=== PATIENT | female | born 1995 | race Caucasian/White ===

== ENCOUNTER 2017-06-04 16:41 | Inpatient (IN) | payer OTHER ==
--- NOTE | 2017-06-04 17:19 | EDPHY ---
H & P Smoking Status: Former smoker Time Seen by Provider: 06/04/17 16:50 HPI/ROS: CHIEF COMPLAINT: Depression, altered mental status HISTORY OF PRESENT ILLNESS: 21-year-old female presents to the emergency department voluntarily with her mother. She has a history of depression. She has been taking Wellbutrin although she has not been compliant with this medication. She stopped abruptly a few days ago and then restarted and started taking 300 mg of Wellbutrin. The patient has not been sleeping well. Her mother and her roommates report that she has been responding with bizarre comments. She had times will not make sense. She denies any URI symptoms. No chest pain or difficulty breathing. No cough. No fevers or chills. She denies suicidal homicidal ideation. Denies auditory visual hallucinations. She does smoke marijuana, last use was over 1 week ago. The mother and roommates reports that her altered mental status has been present for the last 2 weeks. She currently denies any physical complaints. Unknown last menstrual period. She has a Mirena IUD. She does report stress with upcoming finals and recent break-up with her boyfriend. REVIEW OF SYSTEMS: Constitutional: No fever, no chills. Eyes: No double or blurry vision. ENT: No sore throat. Respiratory: No cough, no shortness of breath. Cardiac: No chest pain. Gastrointestinal: No abdominal pain, vomiting or diarrhea. Genitourinary: No dysuria. Musculoskeletal: No neck or back pain. Skin: No rashes. Neurological: No headache. (JosieLeela Becky) Past Medical/Surgical History: Depression (AlyssaLeela kenney) Social History: [employer] student studying chemistry (Elza Galindorina Becky) Physical Exam: General Appearance: Alert, no distress. Mother at bedside. Afebrile. Normal vital signs. Eyes: Pupils equal and round. Extraocular motions are all intact. ENT: Mouth: Mucous membranes moist. Respiratory: No wheezing, rhonchi, or rales, lungs are clear to auscultation. Cardiovascular: Regular rate and rhythm. Gastrointestinal: Abdomen is soft and nontender, no masses, no rebound or guarding, bowel sounds normal. Neurological: Alert and oriented x 3, cranial nerves II through XII grossly intact Skin: Warm and dry, no rashes. Musculoskeletal: Nontender to palpate along the cervical, thoracic or lumbar spine. Neck is supple. Extremities: Full range of motion and no peripheral edema. Psychiatric: Patient is oriented X 3, there is no agitation. (Leela Galindo) Constitutional: Initial Vital Signs Temperature (C) 37.3 C 06/04/17 16:48 Heart Rate 87 06/04/17 16:48 Respiratory Rate 18 06/04/17 16:48 Blood Pressure 109/77 06/04/17 16:48 O2 Sat (%) 97 06/04/17 16:48 O2 Delivery Mode Room Air Allergies/Adverse Reactions: No Known Allergies Allergy (Unverified 06/04/17 16:48) Home Medications: Medication Instructions Recorded NK [No Known Home Meds] 06/04/17 Medical Decision Making ED Course/Re-evaluation: 12:30 a.m.- The patient has been accepted at [address] [place] [address] Freire. I have completed the EMTALA transfer form. (Carlene Trevino) The patient presents voluntarily with her mother with altered mental status and depression. Her current psychiatrist and therapist encouraged them to come to the emergency department for evaluation. The patient has been medically cleared. She was evaluated by mental health and placed on M1 hold. She is admitted to [address] [place] [address] for inpatient Behavioral Health. (Leela Galindo) Differential Diagnosis: Depression including functional and major depression, situational depression, medication side effect, drugs and alcohol abuse. (Leela Galindo) - Data Points Laboratory Results: Laboratory Results 06/04/17 17:20 06/04/17 17:20 Medications Given: Hunt Carbonate (Eskalith Cr) 450 mg PO BID MALINDA Stop: 12/02/17 10:59 Last Admin: 06/05/17 11:23 Dose: Not Given Lorazepam (Ativan) 1 mg PO Q4HRS PRN PRN Reason: Anxiety, Able to Take PO Stop: 12/02/17 00:09 Last Admin: 06/05/17 13:21 Dose: 1 mg Lorazepam (Ativan) 0.5 mg PO BID MALINDA Stop: 12/02/17 11:14 Last Admin: 06/05/17 11:23 Dose: Not Given Olanzapine (Zyprexa Zydis) 5 mg PO Q4 PRN PRN Reason: AGITATION Stop: 12/02/17 00:09 Last Admin: 06/05/17 13:20 Dose: 5 mg Discontinued Medications Diphenhydramine HCl (Benadryl) 25 mg PO EDNOW ONE Stop: 06/04/17 23:52 Last Admin: 06/04/17 23:53 Dose: 25 mg Departure - Departure Disposition: [facility] IP Clinical Impression: Psychosis Qualifiers: Psychosis type: unspecified psychosis type Qualified Code(s): F29 - Unspecified psychosis not due to a substance or known physiological condition Condition: Fair
[2017-06-04 17:33] LABS: PLATELET COUNT 307 10^3/uL (150-400)
[2017-06-04] MEDS ORDERED: diphenhydrAMINE 25 MG CAP PO ONE ×2 (23:48→23:51)
[2017-06-05] MEDS ORDERED: ACETAMINOPHEN 325 MG TAB PO PRN (00:10)
[2017-06-05] MEDS ORDERED: LORazepam 0.5 MG TAB PO PRN (00:10)
[2017-06-05] MEDS ORDERED: OLANZapine DISINTEGR 5 MG TAB PO PRN (00:10)
[2017-06-05] MEDS ORDERED: MAGNESIUM HYDROXIDE 30 ML UDCUP PO PRN (00:10)
[2017-06-05] MEDS ORDERED: MAG HYDROX/AL HYDROX/SIMETH 30 ML UDCUP PO PRN (00:10)
[2017-06-05] MEDS: LORazepam 0.5 MG TAB PO SCH ×3 (11:10→19:05)
[2017-06-05] MEDS: LITHIUM CARBONATE ER 450 MG TAB PO SCH ×3 (11:11→18:59)
[2017-06-05] MEDS ORDERED: LORazepam 2 MG/ML INJ IM PRN (11:23)
[2017-06-05] MEDS ORDERED: OLANZapine 10 MG/2 ML VIAL IM PRN (11:23)
--- NOTE | 2017-06-05 12:10 | BAPA ---
[f rep st] ADMISSION PSYCHIATRIC ASSESSMENT IDENTIFICATION: This is a 21-year-old single white female who lives with 2 roommates. 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 Her parents live in [place], [place]. CHIEF COMPLAINT: "Why is there no music in here, what school did you go to? It is a struggle. I was in the ambulance, there were red lights, everyone was asking me questions, my Mom was scared, my dog ." HISTORY OF PRESENT ILLNESS: The patient is a poor historian with disorganized and tangential thoughts, and refusal to answer most questions. She abruptly yells at this physician and demands to know what school I went to. She is demanding that music be played for her so that she can sing. When approached with medications to take, she throws the tablets in the air, throws the pill cup at the nurse, screams and walks away. She is unwilling to discuss diagnosis and treatment options. She does report prior to admission that she was calling multiple family members and friends, but she is unable to explain why. She does report that she has been doing well in school up until the past week, that she has been missing classes. She does currently deny thoughts to hurt herself or others, or any hallucinations. The report from the emergency room is that the patient was taken to the ER after the patient was making bizarre statements to her roommates, who called her parents. Her mother took her to the emergency department. The patient's mother reports over the phone and in the ER that the patient has been acting erratically, has had reduced sleep, lost weight, about 16 pounds, at times has been expansive, talking about singing rap songs. She also reported to her mother that she is getting and wants a white dress, but is unable to explain to whom she is getting to. According to her mother, she has also been hysterical, crying, screaming, irritable, agitated and more emotional. She has also been speaking fast and having bizarre behaviors. The patient's mother took her to [facility], who apparently referred her to the emergency department. The patient's mother reports the patient took Wellbutrin for several months for depression, but had not been taking Wellbutrin in the past month, has been missing classes in the past week, not eating well, losing weight and acting bizarre. In the emergency department, the patient made statements about wanting to be euthanized and wanting to commit suicide, but denied intent to do this. She denied violent thoughts or hallucinations in the emergency department. She denied recent drug or alcohol abuse in the emergency department , other than using cannabis and alcohol once or twice a month with friends. The patient currently denies any physical health problems or any weakness in her arms or legs. She denies nausea, diarrhea, headaches, or visual changes. PAST PSYCHIATRIC HISTORY: The patient denies past psychiatric hospitalizations and denies any past suicide attempts or violence toward others. This history is supported by her mother. The patient has been in outpatient treatment at [facility] with Maida Gomez, a nurse practitioner, and taking Wellbutrin for about 6 months, but has recently been noncompliant. The patient has no history of arrests or other psychiatric medication trials. PAST MEDICAL HISTORY: She has an IUD for control. She denies traumatic brain injuries, seizures, concussions, or any chronic medical problems. ALLERGIES: She has no known drug allergies. CURRENT MEDICATIONS: Wellbutrin 300 mg daily, but has been noncompliant for the past month. SOCIAL HISTORY: She grew up in [place], [place], graduated from high school, and then went to the [employer] for college. Her parents relocated to [place], [place]. She has a younger brother who is in high school. She has never been , has no children. 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 She lives with 2 roommates. The patient reports her family dog a week ago. FAMILY HISTORY: The patient's mother reports the patient's maternal uncle has depression and paternal aunt has depression. No family history of suicide, schizophrenia, bipolar disorder or substance abuse. LABS: In the emergency department, her urine tox screen was negative, alcohol level negative. Serum beta HCG was negative. She had a white blood cell count 9.9, hemoglobin 15.9, platelet count 307. Sodium 142, potassium 3.8, creatinine 0.8, glucose 92, calcium 10.2. The staff report on the unit the patient only slept 4 hours after arriving on the unit at 1:00 a.m. She has been loud, disruptive, screaming, crying, throwing things, but she has also been acting very disorganized, labile, laughing at nothing and crying at times. MENTAL STATUS EXAM: She is a thin white female who is ambulatory without weakness or tremors. She has good eye contact. She has disorganized behavior and is intrusive and inappropriate with staff and other patients. She is impulsively walking away and throwing things. Her speech is briefly loud, with brief yelling. Her thoughts are disorganized with loose associations and tangential thinking. Her mood is "Why is there no music for me to sing to." Her affect is irritable and labile. She denies current thoughts to hurt herself or others. She denies auditory hallucinations or paranoia. Her insight is very poor. Her judgment is impaired. ASSESSMENT: Bipolar disorder type 1, most recent episode manic, severe. The overall assessment is the patient appears gravely disabled. She is very disorganized with tangential thinking, mood lability, has been not eating well and lost 16 pounds, has been missing school. She was taken to the emergency department for erratic and bizarre behaviors. There, she did make statements about suicide, but denies current suicidal ideation on the unit. The patient is agitated and throwing her pills in the air, and throwing a cup at the nursing staff, and is unable to follow simple directions at times. She is intrusive and disruptive on the unit. The patient has no prior history of psychiatric hospitalizations or carlos, but may have been taking Wellbutrin intermittently in the past month. PLAN: 1. The patient is on M1 hold due to concern that she is gravely disabled by disorganized thinking and bizarre behavior. The M1 hold indicates the patient has been nonsensical in her speech and delusional that she is getting . 2. The patient is on safety and SP1 suicide precautions on the unit to monitor her safety. 3. The patient is unable to have a back and forth discussion about the risks and benefits of different mood stabilizer medications. We will offer lithium 600 mg p.o. twice daily, along with Ativan 0.5 mg twice daily for bipolar disorder with agitation. 4. Provided the patient a handout on bipolar disorder to read, as well as a handout from the [facility] on the risks and side effects of lithium. 5. Ordered emergency medication backup for the next 24 hours, as the patient has been very disruptive and verbally abusive to the people on the unit, and she has been throwing things, which is a physical and emotional danger to the other patients and staff. Ordered lorazepam 1 mg IM if patient refused scheduled or p.r.n. Ativan dosing. I also ordered olanzapine 5 mg IM if refusing p.r.n. Zydis 5 mg or the scheduled lithium 600 mg twice daily. 6. Added on a TSH, lipid panel, liver function tests to the emergency room blood work. A hospitalist evaluation and physical exam is pending. 7. We will file a short-term certification for the patient to remain in the hospital, as she is not accepting voluntary treatment and needs emergency medications. 8. Requested records from [facility] 9. Reviewed assessment and plan with patients mother, who was visiting patient on the unit. Patient gave verbal consent to have her care coordinated with her parents. Addendum: In the afternoon patient was screaming and throwing mouth wash and shampoo bottles in the hallway. She took PRN Ativan 1mg and PRN Zydis 5mg by mouth and was more calm and rested. /[id number]/MODL MTDD
[2017-06-05] MEDS: LORazepam 0.5 MG TAB PO PRN ×2 (13:21→19:04)
--- NOTE | 2017-06-05 17:28 | BCON ---
[f rep st] BEHAVIORAL HEALTH CONSULTATION INPATIENT INTERNAL MEDICINE CONSULTATION DATE OF CONSULTATION: 06/05/2017 REFERRING PHYSICIAN: Alexy Oseguera MD REASON FOR REFERRAL: Medical clearance for inpatient behavioral health stay. HISTORY OF PRESENT ILLNESS: This patient was brought to the emergency room yesterday with her mother. She had been referred there by the [facility]. She had been having erratic behavior, making bizarre statements. Further history per chart reveals that she has had reduced sleep, many manic symptoms and a 16- pound weight loss. She was evaluated by the mental health team and admitted for further psychiatric care. Since being on the unit, she was disruptive and labile, and has received emergency medications with lorazepam and olanzapine. She currently is without any acute complaints. PAST MEDICAL HISTORY: Depression. MEDICATIONS: She had intermittent use of bupropion. 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 She lives with roommates. She is a nonsmoker. She uses occasional marijuana. FAMILY HISTORY: Noncontributory. REVIEW OF SYSTEMS: She feels sleepy. She is aware of weight loss. She says she is not sure if she feels dizzy or not when she stands up. She denies pain, cough, dyspnea, nausea, vomiting, constipation, or diarrhea. She says her appetite is improved. Otherwise, a 10-point review of systems is negative. PHYSICAL EXAM: VITAL SIGNS: Taken at 1:50 this morning, blood pressure was 126 /88, heart rate was 69, respiratory rate was 16, oxygen saturation was 95% on room air. Temperature was 36.3 degrees centigrade. Her weight is 61.8 kg for a body mass index of 22. GENERAL: This is a thin woman, appears her chronologic age, sleeping, awakes to verbal stimulation. Overall cooperative, and in no acute distress HEENT: Extraocular movements are intact. Dentition is good condition. Mucous membranes are moist. Further exam was limited due to patient's behavior. LUNGS: She had no retractions and no tachypnea. ABDOMEN: Overall, was benign. EXTREMITIES: There is no cyanosis, clubbing, or edema. NEUROLOGIC: She was alert. She was oriented to self and date. She was not oriented to location. She had no focal weakness. She stood up from the bed and fell to the floor, initially collapsing to hands and knees and then prone with no head trauma. She was able to stand up again without assistance, but had minor loss of balance with spontaneous correction, and then reported that she needed to urinate and went to the bathroom. I returned to the room with a nurse. She was able to ambulate with minimal ataxia and minor loss of balance with spontaneous correction, back to her bed. LABORATORY STUDIES: Drawn in the emergency department, CBC revealed a mildly elevated white blood cell count at 9.97 with no left shift, red blood cell count was high at 5.58 and hematocrit was high at 47.3; otherwise, CBC was within normal limits. Serum chemistry revealed an anion gap of 17, but otherwise renal function and electrolytes were within normal limits. TSH was normal at 2.02. Beta hCG was negative for . Toxicology screen in the serum was negative for ethyl alcohol and the urine was negative for any substances of abuse. ASSESSMENT AND RECOMMENDATIONS: 1. Mental health issues, pending further evaluation per Psychiatry and the Mental Health team. 2. Ataxia and a fall, likely due to emergency medication with olanzapine and lorazepam, medications which she has not taken before. I have ordered orthostatic blood pressure and pulse, supine and standing. She may benefit from increased fluid intake. Consider adjustment of the lorazepam dose to reduce risk of falling, assuming that her behavior is otherwise adequately controlled. 3. Weight loss is likely due to her mental health condition. Observe for normal p.o. intake once she is psychiatrically stabilized. I see no medical contraindications to this patient's continued stay on the inpatient behavioral health unit or to any psychiatric medications or procedures. Thank you very much for including me in the care of this patient and please do not hesitate to contact me or the hospitalist service should there be need for further medical evaluation. /[id number]/MODL MTDD
[2017-06-06] MEDS: LORazepam 0.5 MG TAB PO SCH (08:23)
[2017-06-06] MEDS: LITHIUM CARBONATE ER 450 MG TAB PO SCH ×2 (08:23→20:43)
[2017-06-06] MEDS ORDERED: LORazepam 2 MG/ML INJ IM PRN (10:55)
[2017-06-06] MEDS ORDERED: OLANZapine 10 MG/2 ML VIAL IM PRN (10:55)
[2017-06-06] MEDS ORDERED: OLANZapine 2.5 MG TAB PO PRN (10:56)
--- NOTE | 2017-06-06 11:02 | SOAPPROG ---
SOAP Progress Note Assessment/Plan: Assessment: Bipolar Disorder, I, Manic severe with mixed features Hypotension, recent weight loss Patient was manic and disruptive on unit and throwing objections with severe verbal abuse of staff and severe mood lability. Patient had hypotension and near syncope after Ativan 1mg and Olanzapine 5mg. Patient appears much improved and more calm but has mood lability and appears distracted and tangential. Plan: Short Term Certification 06/05/17 EMED DAY TWO Reduce Ativan 0.5mg QHS and PRN, if refused Ativan 0.5mg IM Continue [place] 450mg BID, started 06/05/17 Reduce Olanzapine 2.5mg [id number] PRN agitation, if refused Olanzapine 2.5mg IM Monitor PO intake; Vitals BID Education about Bipolar Disorder Reviewed risks of [place], including hypothyroidism, renal dysfunction, defects, delirium, GI symptoms Left voicemail at [facility] for [employer] Maida Gomez requesting call back to coordinate care Wrote letter for patient to give to parents for school excuse 06/06/17 11:09 Subjective: CC: 'better, i apologize for the fit that I threw.' Patient reports that she slept well. Denies feeling dizzy or unsteady this AM and reports eating breakfast. Reports reading handout on Bipolar Disorder and agrees with diagnosis. Reports yesterday feeling agitated, emotional, impulsive. Reports not wanting to meet with mother on unit at this time 'she triggers me and I get really upset with her.' Reports she is unsure how long she has had mood swings. Denies feeling hopeless or suicidal. Admits to feeling violent yesterday but denies feeling violent this AM. Objective: Vital Signs Temp Pulse Resp BP Pulse Ox 36.5 C 69 14 87/53 L 95 06/06/17 06:44 06/06/17 06:44 06/06/17 06:44 06/06/17 06:44 06/06/17 06:44 Alert thin WF, ambulatory. Very distracted. Speech RRR, loud at times. No tremors or weakness. Mood 'better, i apologize for the fit that I threw.' Affect labile: smiling and laughing, later tearful. Thoughts briefly organized but tangential with occasional loose association. Denies SI or HI or AH. Insight improved. Judgment questionable. Staff report yesterday patient extremely agitated, crying, screaming, throwing objects, disrupting unit, illogical. Got EMED/PRN Zydis 5mg and Ativan 1mg PO at 13:00, slept a few hours. Was mildly ataxic getting out of bed for hospitalist, fell to ground on hands and knees with low BP, later able to walk and use bathroom. Minimal PO intake in AM yesterday. Able to drink large amount of Gatorade in evening and cooperated with PO [place] and Ativan last night. Staff report patient slept 8 hours overnight and ate full breakfast this AM TSH 2.0; Lipids, HgbA1c, LFTs WNL . - Time Spent With Patient Time Spent With Patient: 30 minutes - Pending Discharge Pending Discharge Within 24 Hours: No Pending Discharge Within 48 Hours: No ICD10 Worksheet Patient Problems: Problems Problem Status Onset Bipolar disorder Acute Intrauterine device Acute Psychosis Acute
--- NOTE | 2017-06-06 14:15 | CPEKG ---
Heart Rate: 107 RR Interval: 561 P-R Interval: 176 QRSD Interval: 82 QT Interval: 320 QTC Interval: 427 P Berry: 59 QRS Berry: 75 T Wave Berry: 22 EKG Severity - OTHERWISE NORMAL ECG - EKG Impression: SINUS TACHYCARDIA Electronically Signed By: Bradley Cottrell 07-Jun-2017 15:46:32
[2017-06-06] MEDS: LORazepam 0.5 MG TAB PO PRN (14:38)
[2017-06-06] MEDS ORDERED: LORazepam 0.5 MG TAB PO SCH (21:00)
[2017-06-07] MEDS: LITHIUM CARBONATE ER 450 MG TAB PO SCH ×2 (08:46→17:56)
[2017-06-07] MEDS ORDERED: OLANZapine 2.5 MG TAB PO PRN (14:05)
--- NOTE | 2017-06-07 14:12 | SOAPPROG ---
SOAP Progress Note Assessment/Plan: Assessment: Bipolar Disorder, I, Manic severe with mixed and psychotic features Recent hypotension, near syncope, weight loss Patient is much more calm and appropriate but is tangential, grandiose, and illogical at times with labile affect. Plan: Short Term Certification 06/05/17 Continue [place] 450mg BID Check AM [place] level and BMP Start Olanzapine 2.5mg QHS. SHREYA handout on olanzapine provided to patient, discussed risk of sedation, metabolic syndrome, tardive dyskinesia. Change Olanzapine 2.5mg PRN agitation Change Ativan 0.5mg PRN Monitor mood lability and thought process Reviewed plan with mother who is on the unit visiting Supportive therapy regarding school stressors 06/07/17 14:18 Subjective: CC: "Alright Mr. Lyon" Patient is a poor historian. Endorses mood swings and irritability, reports briefly crying 'on and off' and briefly yelling at mother. Reports not wanting to live with parents after discharge due to wanting to complete school. Denies side effects from medications. Reports her plans to get were not based in reality but later reports she is in love with a boy in her physics class and then starts crying. Reports her thoughts of being a rap star involves singing songs with her friends, when asked if that was an odd plan patient starts crying. Later smiling and laughing about her behavior on 06/05. Reports her current goal is to return home with roommates and take her finals. Reports she is willing to take [place] and Zyprexa 'as long as I get to see a picture of the chemical structure.' Denies ever having AH or VH or paranoia. Objective: Vital Signs Temp Pulse Resp BP Pulse Ox 36.5 C 78 16 119/65 91 L 06/06/17 06:44 06/07/17 07:04 06/07/17 07:04 06/07/17 07:04 06/07/17 07:04 Staff report patient eating meals and drinking fluids with prompts. Attending most groups. Patient has been labile on unit, crying alone in room, other times in milieu socializing laughing with patients, briefly yelling at mother during visits. Only slept 6 hours overnight. Alert WF. ambulatory without tremors or weakness. Speech RRR. Mood 'alright' Affect labile: smiling with humor, later crying. Thoughts mostly organized but illogical and grandiose when talking about wanting to sing rap songs with friends and get to a boy in her physics class. Illogical/odd statements. Denies AH. No evident paranoia. Limited insight. EKG WNL except sinus tachycardia HR 107. Ate 100% of meals. - Time Spent With Patient Time Spent With Patient: 30 minutes - Pending Discharge Pending Discharge Within 24 Hours: No Pending Discharge Within 48 Hours: No ICD10 Worksheet Patient Problems: Problems Problem Status Onset Bipolar disorder Acute Intrauterine device Acute Psychosis Acute
[2017-06-07] MEDS ORDERED: OLANZapine 2.5 MG TAB PO SCH (21:00)
[2017-06-07] MEDS: LORazepam 0.5 MG TAB PO PRN (22:27)
[2017-06-08] MEDS: LITHIUM CARBONATE ER 450 MG TAB PO SCH (08:23)
[2017-06-08] MEDS: LORazepam 0.5 MG TAB PO PRN (12:06)
[2017-06-08] MEDS ORDERED: OLANZapine 2.5 MG TAB PO PRN (13:24)
[2017-06-08] MEDS ORDERED: LORazepam 0.5 MG TAB PO PRN (13:24)
--- NOTE | 2017-06-08 13:30 | SOAPPROG ---
SOAP Progress Note Assessment/Plan: Assessment: Bipolar Disorder, I, Manic severe with mixed and psychotic features Recent hypotension, recent weight loss Patient has been calm mostly today, but is labile (tearful, anxious, irritable, briefly euphoric) and appears impulsive with poor insight. Plan: Short Term Certification 06/05/17 Increase [place] 600mg QAM and 900mg QHS Check [place] level Sunday06/11/17 Schedule Ativan 0.5mg QHS, discontinue daytime PRN Continue Olanzapine 2.5mg PO QHS Start Olanzapine 2.5mg [id number] PRN agitation during the day Monitor mood lability and thought process and impulse control 06/08/17 13:37 Subjective: CC: "I'm OK, I was anxious and upset and took an Ativan, I thought a patient was leaving, not sure what was going on, I want to go hiking.' Patient reports needing PRN Lorazepam last night to sleep. Reports continued mood instability, reports some moments wanting discharge to go hiking, later feeling anxious worried about the emotional well-being of the other patients, and at other times realizing that she has bipolar disorder and needs medication. Reports wanting to go home with parents after discharge, then later reports wanting to on a hiking trip with friends. Later reports feeling more calm, then later impulsively walks away from interview report that she doesn't feel that she is understood. Objective: Vital Signs Temp Pulse Resp BP Pulse Ox 36.7 C 72 16 100/60 98 06/08/17 06:41 06/08/17 06:41 06/08/17 06:41 06/08/17 06:41 06/08/17 06:41 Laboratory Results 06/08/17 06:00 Staff report patient took HS Olanzapine/[place], then took PRN Ativan 0.5mg, then slept 8 hours. Calm during groups, but outside of groups pacing the hallways, making odd statements, briefly crying in room, later smiling and laughing. Alert WF. Initially cooperative then impulsively walks away from interview. Affect labile - smiling with humor, later crying, later anxious and irritable. Thoughts briefly organized. Denies SI, violent thoughts or AH. Poor insight - reports wanting immediate discharge to go on a hiking trip. - Time Spent With Patient Time Spent With Patient: 20 minutes - Pending Discharge Pending Discharge Within 24 Hours: No Pending Discharge Within 48 Hours: No ICD10 Worksheet Patient Problems: Problems Problem Status Onset Bipolar disorder Acute Intrauterine device Acute Psychosis Acute
[2017-06-08] MEDS ORDERED: OLANZapine 2.5 MG TAB PO SCH (21:00)
[2017-06-08] MEDS: LITHIUM CARBONATE 300 MG CAP PO SCH (21:01)
[2017-06-08] MEDS: LORazepam 0.5 MG TAB PO SCH (21:02)
[2017-06-09] MEDS: LITHIUM CARBONATE 300 MG CAP PO SCH ×2 (08:07→20:27)
--- NOTE | 2017-06-09 14:31 | SOAPPROG ---
SOAP Progress Note Assessment/Plan: Assessment: Per Dr. Lyon's note: Assessment/Plan: Assessment: Bipolar Disorder, I, Manic severe with mixed and psychotic features Recent hypotension, recent weight loss Patient has been calm mostly today, but is labile (tearful, anxious, irritable, briefly euphoric) and appears impulsive with poor insight. Plan: Short Term Certification 06/05/17 Increase [place] 600mg QAM and 900mg QHS Check [place] level Sunday06/11/17 Schedule Ativan 0.5mg QHS, discontinue daytime PRN Continue Olanzapine 2.5mg PO QHS Start Olanzapine 2.5mg [id number] PRN agitation during the day Monitor mood lability and thought process and impulse control Plan: 06/09/17 14:28 1. No evidence of carlos: no increased goal-directed activity, no decreased need for sleep, no elated or elevated mood, no grandiose delusions, no reckless or impulsive behavior, no pressured speech or racing thoughts. 2. Patient has been eating 100% of meals, going to groups and participating in milieu activities. 3. [place] level on 06/[address] Lyon increased dose and ordered repeat level on 06/11/17. Subjective: Met with patient, reviewed chart and d/w staff. Patient has been calm and appropriate on unit. She was playing chess with staff this AM. She has been going to groups and participating in milieu activities. She denies any SI/HI, and denies AH/VH. Objective: Vital Signs Temp Pulse Resp BP Pulse Ox 36.6 C 76 14 109/67 98 06/09/17 06:35 06/09/17 06:35 06/09/17 06:35 06/09/17 06:35 06/09/17 06:35 Laboratory Results 06/08/17 06:00 MSE: Affect: Euthymic Mood: "OK" TP: Linear TC: Denies any SI/HI, no AH/VH, no paranoia Insight/Judgment: Improving - Time Spent With Patient Time Spent With Patient: 15" - Pending Discharge Pending Discharge Within 24 Hours: No Pending Discharge Within 48 Hours: No ICD10 Worksheet Patient Problems: Problems Problem Status Onset Bipolar disorder Acute Intrauterine device Acute Psychosis Acute
[2017-06-09] MEDS: LORazepam 0.5 MG TAB PO SCH (20:27)
[2017-06-10] MEDS: LITHIUM CARBONATE 300 MG CAP PO SCH ×2 (08:47→18:15)
--- NOTE | 2017-06-10 13:03 | SOAPPROG ---
SOAP Progress Note Assessment/Plan: Assessment: Per Dr. Lyon's note: Assessment/Plan: Assessment: Bipolar Disorder, I, Manic severe with mixed and psychotic features Recent hypotension, recent weight loss Patient has been calm mostly today, but is labile (tearful, anxious, irritable, briefly euphoric) and appears impulsive with poor insight. Plan: Short Term Certification 06/05/17 Increase [place] 600mg QAM and 900mg QHS Check [place] level Sunday06/11/17 Schedule Ativan 0.5mg QHS, discontinue daytime PRN Continue Olanzapine 2.5mg PO QHS Start Olanzapine 2.5mg [id number] PRN agitation during the day Monitor mood lability and thought process and impulse control Plan: 06/09/17 14:28 1. No evidence of carlos: no increased goal-directed activity, no decreased need for sleep, no elated or elevated mood, no grandiose delusions, no reckless or impulsive behavior, no pressured speech or racing thoughts. 2. Patient has been eating 100% of meals, going to groups and participating in milieu activities. 3. [place] level on 06/[address] Lyon increased dose and ordered repeat level on 06/11/17. 06/10/17 12:57 1. Labile, tearful at times. Some response latency. 2. Complained of nausea, but ate 100% of breakfast and lunch. Admitted upset stomach could be b/c she wasn't looking forward to visit with MOC. 3. No complaints of SE's from lithium. 4. [place] level on Sunday. Subjective: Met with patient, reviewed chart and d/w staff. Patient has odd affect, stares at MD intently while smiling, followed by long delay before responding. Her MOC told CC yesterday that she did not think her daughter was acting normally. She told CC "this is not" her daughter's baseline. She said usually daughter is very talkative and her speech is much more spontaneous and fluent. While MD was talking to patient she broke down crying, staying she doesn't want to talk to her MOC b/c her MOC wants her to return to live with her, and patient wants to "go to [facility]" for "opportunities" though she couldn't specify what opportunities. Objective: Vital Signs Temp Pulse Resp BP Pulse Ox 36.7 C 75 16 121/58 H 99 06/10/17 06:45 06/10/17 06:45 06/10/17 06:45 06/10/17 06:45 06/10/17 06:45 Laboratory Results 06/08/17 06:00 MSE: Affect: Labile, tearful Mood: "Good" TP: Tangential, loose TC: Denies any SI/HI, denies AH/VH, seems internally preoccupied at times Insight/Judgment : Poor - Time Spent With Patient Time Spent With Patient: 20" - Pending Discharge Pending Discharge Within 24 Hours: No Pending Discharge Within 48 Hours: No ICD10 Worksheet Patient Problems: Problems Problem Status Onset Bipolar disorder Acute Intrauterine device Acute Psychosis Acute
[2017-06-10] MEDS: LORazepam 0.5 MG TAB PO SCH (19:07)
[2017-06-11] MEDS: LITHIUM CARBONATE 300 MG CAP PO SCH (07:54)
[2017-06-11] MEDS ORDERED: LORazepam 0.5 MG TAB PO PRN (11:34)
--- NOTE | 2017-06-11 12:04 | SOAPPROG ---
SOAP Progress Note Assessment/Plan: Assessment: Bipolar Disorder, I, most recent manic - improved Recent hypotension, recent weight loss Patient has been calm today with better insight but was tearful yesterday after mother reported to patient that she could not travel to [place] later this month for a [employer] libertarian. Blood draw this AM hemolyzed, lithium level may not be accurate. Patient's nausea over weekend likely related to increased immediate release lithium. Patient reports not wanting to take Ativan at bedtime due to fear of dependency. Plan: Short Term Certification 06/05/17 Change [place] to [place] ER, 450mg QAM and 900mg QHS Change Ativan 0.5mg PRN Start Hydroxyzine 25mg QHS Monitor mood stability, nausea Recheck [place] level in AM Possible discharge tomorrow if continued improvement Refer to [facility] 06/11/17 12:06 Subjective: CC: "better, more in control of myself" Patient reports sleeping well overnight. Reports not wanting Ativan at bedtime due to fear of dependency, but reports wanting to take medication at bedtime to help with her sleep cycles. Agrees to continue [place] after discharge. Reports she is willing to live with parents after discharge and attend IOP. Reports nausea mostly in PM past two evenings after taking PM [place]. Denies violent or suicidal thoughts. 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 Denies paranoia or AH. Denies racing thoughts or irritability. Objective: Vital Signs Temp Pulse Resp BP Pulse Ox 36.6 C 79 15 91/51 L 98 06/11/17 06:32 06/11/17 06:32 06/11/17 06:32 06/11/17 06:32 06/11/17 06:32 Laboratory Results 06/08/17 06:00 Staff report patient slept 9 hours overnight. Ate 100% of meals yesterday. Calm on unit and attending groups. Odd smiling and appearing distracted at times. Was briefly tearful yesterday after mother told her that she would not be traveling to [facility] this month. Prior to that was calm with family visit and doing yoga with mother in her room. Complaining of PM Nausea with PM [place] dosing past 2 nights. Blood test hemolyzed, level 1.0 may not be accurate. Alert WF. Speech RRR. Mood 'better, more in control of myself.' Affect euthymic, odd smiling at times. Thoughts organized. Denies SI or HI or violent thoughts or AH or paranoia. Limited/improved insight. Improved judgment. - Time Spent With Patient Time Spent With Patient: 30 minutes - Pending Discharge Pending Discharge Within 24 Hours: Yes Pending Discharge Within 48 Hours: No Pending Discharge Date: 06/12/17 Pending Discharge Time: 11:00 ICD10 Worksheet Patient Problems: Problems Problem Status Onset Bipolar disorder Acute Intrauterine device Acute Psychosis Acute
[2017-06-11] MEDS ORDERED: LITHIUM CARBONATE ER 450 MG TAB PO SCH (21:00)
[2017-06-11] MEDS ORDERED: hydrOXYzine HCL 25 MG TAB PO SCH (21:00)
[2017-06-12 06:48] VITALS: BP 110/59
--- NOTE | 2017-06-12 08:53 | SOAPPROG ---
SOAP Progress Note Assessment/Plan: Assessment: Bipolar Disorder, I, most recent manic - improved Recent hypotension, recent weight loss Patient appears calm with improved insight. Plan: Short Term Certification 06/05/17 Continue [place] ER 450mg QAM and 900mg QHS Discontinue HS Hydroxyzine Restart Ativan 0.5mg QHS Refer to [facility] Possible discharge this afternoon after family meeting 06/12/17 08:53 Subjective: CC: 'better, more calm and in control.' Patient reports not sleeping as well with Hydroxyzine and requests HS Ativan 0.5mg be restarted. Denies nausea with extended release lithium. Reports feeling calm and reports plan to take an incomplete on one class that requires a final test, and take the test at the end of the summer. Agrees to continue medication after discharge and attend follow up treatment. Agrees to live with parents after discharge. Reports worry that she will not be able to travel to [facility] after discharge. Reports she agrees with bipolar disorder diagnosis. Objective: Vital Signs Temp Pulse Resp BP Pulse Ox 36.7 C 60 16 110/59 L 100 06/12/17 06:47 06/12/17 06:47 06/12/17 06:47 06/12/17 06:47 06/12/17 06:47 Laboratory Results 06/08/17 06:00 [place] level 0.8 Staff report patient was briefly tearful yesterday after long discussion with mother about her classes and needing to take an incomplete on some of them in order to take test at end of summer. Otherwise slept well, eating well, calm on unit, no grandiose statements, able to calmly attend groups and interact appropriately with other patients and staff. Alert WF, ambulatory without weakness or tremor. Speech RRR. Mood 'better, more calm and in control.' Affect euthymic with brief smiling. Thoughts organized. Denies SI or HI or AH or paranoia. Improved insight/judgment. - Time Spent With Patient Time Spent With Patient: 20 minutes - Pending Discharge Pending Discharge Within 24 Hours: Yes Pending Discharge Date: 06/12/17 Pending Discharge Time: 13:00 ICD10 Worksheet Patient Problems: Problems Problem Status Onset Bipolar disorder Acute Intrauterine device Acute Psychosis Acute
[2017-06-12] MEDS ORDERED: LITHIUM CARBONATE ER 450 MG TAB PO SCH (09:00)
--- NOTE | 2017-06-12 12:20 | BDS ---
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 Her parents and her younger brother live in [place], [place]. Date of admission was June 05, 2017, date of discharge is today June 12, 2017. REASON FOR ADMISSION: Please see psychiatric assessment from June 05, 2017. The patient apparently had been having erratic behavior, insomnia, impulsive behavior, along with grandiosity and disorganized thinking, disorganized behavior, and severe mood lability, and was taken to the emergency room by her mother. HOSPITAL COURSE: The patient was admitted to the inpatient unit and was initially very labile. She was crying and screaming at times. She was impulsively throwing things. She was agitated, irritable and disorganized. She also made grandiose statements about wanting to get and being a Rap star. She refused to take oral medications, threw pills in the air and threw a cup at a nurse, and threw many of her toiletry items. She was placed on emergency medications. She eventually complied with Zyprexa and Ativan by mouth , calmed down, and later took [place] and Ativan at bedtime, and then slept overnight. The patient then appeared improved. She cooperated with lithium twice daily, along with bedtime olanzapine and later bedtime Ativan. The olanzapine was eventually discontinued after she had been on lithium for a few days. She had an initial lithium level of 0.4 on 600 mg a day of lithium. The lithium level from June 11 was hemolyzed and inaccurate, on 1350 mg a day of lithium she had a lithium level of 0.8. The patient had marked improvement. She became more calm, more organized, had improved insight, remission of her grandiosity, remission of her mood lability, and improvements in her impulse control. She did not benefit from Hydroxyzine for sleep and continued on Lorazepam 0.5mg at bedtime for sleep. During the course of hospitalization, the patient denied suicidal or violent thoughts, or any auditory hallucinations or paranoia. The patient had mood lability and irritability during the first few visits from her family, but on the unit largely had improved mood stability , was eating well, sleeping well, attending most groups, and calm and pleasant on the unit prior to discharge. The patient had been taking Wellbutrin for about 3 months from [facility]. This was discontinued during the admission, as the patient was having a manic episode. The patient signed release of information for [facility] to organize followup discharge planning, as well as [facility] [place] [facility] Intensive Outpatient program, as the patient was going to live with her parents in [place] for a few weeks after discharge and attend IOP program there or the partial hospitalization program there. The patient, on the unit, denied any major medical problems. CONDITION ON DISCHARGE: She is an alert white female in no acute distress. She is ambulatory, cooperative and pleasant. Her mood is "pretty good." Her affect is euthymic. Her thoughts are organized. She denies any thoughts to hurt herself or others. She denies paranoia or hallucinations. She has good memory, fair insight, and appropriate judgment. PROCEDURES: She had electrocardiogram related to tachycardia on June 06, 2017. This showed heart rate 107, QTc interval 427 milliseconds. It is read as sinus tachycardia, otherwise normal ECG. CONSULT: She had a baseline physical exam by Dr. Fernandez on June 05, 2017. This noted the patient did not have any major medical problems, although she had a possible presyncopal event where she crouched to the floor after getting emergency medications on the first day on the unit. The patient did not have any head trauma or physical trauma from this. METABOLIC SCREENING: The patient had a normal hemoglobin A1c of 6.0, LDL 121, HDL 59, triglycerides 92. The patient was counseled to monitor her diet and to have this rechecked annually with a primary care provider. NICOTINE AND ALCOHOL USE DISORDER SCREENINGS: Patient denied regular use of nicotine or alcohol. ADVANCED DIRECTIVES: Patient declined advanced directives. LABS: She had a white blood cell count of 9.9, hemoglobin 15.9, platelet count 307. Sodium 144, potassium 4.1, creatinine 0.8, glucose 68, calcium 10.0, AST 34, ALT 22, TSH was 2.1. Serum beta HCG was negative. Her urine drug screen was negative. Alcohol level was negative and, again, she had a lithium level of 0.8 on 1350 mg of extended-release lithium. DISCHARGE DIAGNOSES: Bipolar disorder type 1, most recent episode manic, severe. DISCHARGE MEDICATIONS: Extended release lithium 450 mg tablets 1 tab in the morning and 2 tablets at night, for a total daily dose of 1350 mg of lithium. Lorazepam 0.5 mg p.o. at bedtime p.r.n. insomnia. DISPOSITION: The patient is leaving the unit with her mother. She will monitor the patients medication compliance after discharge. FOLLOWUP: The patient has a psychiatric nurse practitioner, Maida Omalley at [facility] for followup medication management. The patient has a therapist named Maria Eugenia Sterling, individual therapist here in the area, for individual therapy. The patient will actually be attending an intake for the partial hospitalization program or intensive outpatient program at [facility], for the patient to attend after discharge from the hospital. LEGAL STATUS: The patient was admitted on M1 hold and then placed on short- term certification, this will be terminated upon discharge from the hospital. INFORMED CONSENT: The patient was warned about the risks of lithium causing defects, miscarriage, contraindicated in breast-feeding, also the risk of hypothyroidism and renal disease, and drug interaction with nonsteroidal anti- inflammatory drugs, and diuretic blood pressure medicines. She was warned about the risks of Lorazepam causing intoxication, amnesia, sedation, falls and cognitive impairment, dependency, and the risk of withdrawal of taking long- term. Therefore, the lorazepam will only be prescribed for 15 tablets. /[id number]/MODL [id number]
[2017-06-12] MEDS ORDERED: LORazepam 0.5 MG TAB PO SCH (21:00)
== END 2017-06-12 13:15 | disposition home or self-care (01) | DRG 885 ==
LOC: BBEH 06-05 01:19
PROVIDERS: ADMIT Psychiatry & Neurology Psychiatry
DX: F31.13 Bipolar disorder, current episode manic without psychotic features, severe (principal); R55 Syncope and collapse
CPT/HCPCS: 80305; G0480; J2060